=== PATIENT | female | born 1970 | race Caucasian/White ===

== ENCOUNTER → 2017-01-28 | Outpatient (CLI) | payer OTHER ==
--- NOTE | 2017-01-31 09:53 | MM ---
Reason for exam: screening (asymptomatic). History: Patient had first child at age 41. Physical Findings: A clinical breast exam by your physician is recommended on an annual basis and results should be correlated with mammographic findings. MG 3D Screening Mammo W/Cad Bilateral CC and MLO view(s) were taken. The breast tissue is heterogeneously dense. This may lower the sensitivity of mammography. No significant changes when compared with prior studies. ASSESSMENT: Benign, BI-RAD 2 RECOMMENDATION: Routine screening mammogram of both breasts in 1 year.
== END | disposition home or self-care (01) ==
LOC: RADMAMWWP 10:07
PROVIDERS: ATTEND Obstetrics & Gynecology
DX: Z12.31 Encounter for screening mammogram for malignant neoplasm of breast (principal)
CPT/HCPCS: 77063; G0202

== ENCOUNTER → 2019-11-21 | Outpatient (CLI) | payer BC ==
[2019-11-22 02:06] LABS: ALT 13 U/L (8-44); AST 21 U/L (13-35); Albumin/Globulin Ratio 1.55 (1.60-3.17); Alkaline Phosphatase 63 U/L (41-126); Bilirubin, Conjugated <0.20 mg/dL (0.20-0.40); Chol/HDL Ratio 3.44; Cholesterol 248 mg/dL (0-200); Globulin 2.9 g/dL (1.6-3.3); LDL Cholesterol,Calculated 157.8 mg/dL (0.0-131.0); Total Bilirubin 0.4 mg/dL (0.3-1.2); Total Protein 7.4 g/dL (6.2-8.2)
== END | disposition home or self-care (01) ==
LOC: LABWHC1 16:14
PROVIDERS: ATTEND Internal Medicine
DX: E78.5 Hyperlipidemia, unspecified (principal)
CPT/HCPCS: 36415; 80061; 80076

== ENCOUNTER → 2020-10-16 | Outpatient (CLI) | payer BC ==
--- NOTE | 2020-10-17 13:39 | MM ---
Reason for exam: screening (asymptomatic). Last mammogram was performed 3 years and 9 months ago. History: Patient had first child at age 41. Physical Findings: A clinical breast exam by your physician is recommended on an annual basis and results should be correlated with mammographic findings. MG 3D Screening Mammo W/Cad Bilateral CC and MLO view(s) were taken. Prior study comparison: January 28, 2017, bilateral MG 3d screening mammo w/cad. October 14, 2015, mammogram. October 07, 2014, mammogram. The breast tissue is heterogeneously dense. This may lower the sensitivity of mammography. There are benign appearing round, vascular calcifications. There is no discrete abnormality. ASSESSMENT: Benign, BI-RAD 2 RECOMMENDATION: Routine screening mammogram of both breasts in 1 year.
== END | disposition home or self-care (01) ==
LOC: RADMAMWWP 12:01
PROVIDERS: ATTEND Obstetrics & Gynecology
DX: Z12.31 Encounter for screening mammogram for malignant neoplasm of breast (principal); Z80.3 Family history of malignant neoplasm of breast
CPT/HCPCS: 77063; 77067

== ENCOUNTER → 2021-05-06 | Outpatient (CLI) | payer BC ==
--- NOTE | 2021-05-06 10:12 | XR ---
Right RIBS HISTORY: Trauma and pain 3 views of the right ribs, no comparisons There is no evident displaced rib fracture. No pneumothorax or pleural effusion. Bone mineralization is maintained. IMPRESSION: No acute abnormalities evident, no displaced fracture. Bone scan may be of benefit to ass ess for occult fracture as indicated.
[2021-05-06 18:26] LABS: ALT 15 U/L (8-44); AST 20 U/L (13-35); Albumin/Globulin Ratio 1.48 (1.60-3.17); Alkaline Phosphatase 58 U/L (41-126); Bilirubin, Conjugated <0.20 mg/dL (0.20-0.40); Chol/HDL Ratio 3.67; Cholesterol 209 mg/dL (0-200); Globulin 2.9 g/dL (1.6-3.3); LDL Cholesterol,Calculated 126.6 mg/dL (0.0-131.0); Total Bilirubin 0.4 mg/dL (0.2-1.2); Total Protein 7.2 g/dL (6.2-8.2)
== END | disposition home or self-care (01) ==
LOC: LABWHC1 09:31
PROVIDERS: ATTEND Internal Medicine
DX: E78.5 Hyperlipidemia, unspecified (principal); R07.81 Pleurodynia
CPT/HCPCS: 36415; 80061; 80076

== ENCOUNTER 2021-12-06 17:45 | Emergency (ER) | payer BC ==
[2021-12-06 18:08] VITALS: RESP 18; TEMP 98.3
[2021-12-06 19:30] VITALS: PULSE 74
[2021-12-06 19:47] VITALS: BP 155/90
--- NOTE | 2021-12-06 20:35 | CT ---
EXAMINATION TYPE: CT brain wo con DATE OF EXAM: 12/06/2021 COMPARISON: 08/23/2017 HISTORY: facial numbness, migraine CT DLP: 1091.4 mGycm Automated exposure control for dose reduction was used. Ventricles have normal size. There is no mass effect or midline shift. There is no sign of intracrani al hemorrhage. Calvarium is intact. Skull base is intact. There is mucous retention cyst in the left maxillary sinus. IMPRESSION: Negative CT scan of the brain. No change. There are mucus retention cysts left maxillary sinus noted.
[2021-12-06 20:58] LABS: Basophils # (A) 0.1 k/uL (0-0.2); Basophils % (A) 1 %; Eosinophils # (A) 0.1 k/uL (0-0.7); Eosinophils % (A) 1 %; HCT 45.3 % (34.0-46.0); HGB 15.1 gm/dL (11.4-16.0); Lymphocytes # (A) 1.7 k/uL (1.0-4.8); Lymphocytes % (A) 18 %; MCH 29.7 pg (25.0-35.0); MCHC 33.4 g/dL (31.0-37.0); MCV 88.9 fL (80.0-100.0); Mean Platelet Volume 9.3; Monocytes # (A) 0.6 k/uL (0-1.0); Monocytes % (A) 6 %; Neutrophils % (A) 73 %; Platelet Count 325 k/uL (150-450); RDW 14.1 % (11.5-15.5); WBC 9.6 k/uL (3.8-10.6)
--- NOTE | 2021-12-06 20:58 | ED ---
General Adult HPI - General Chief complaint: Allergic Reaction Stated complaint: Allergic Reaction, Facial Numbness Time Seen by Provider: 12/06/21 19:06 Source: patient Mode of arrival: ambulatory Limitations: no limitations - History of Present Illness Initial comments: Patient is a 51-year-old female presenting with chief complaint face and hand numbness. Pt states that her R hand and R side of her mouth and tongue began to go numb at 17:30. This was also accompanied by Hives on the neck. Pt then took a benadryl and an aspirin and symptoms began to improve. At presentation, pt states that symptoms have improved but not fully resolved. Pt denies any new foods, medications, or products. Pt denies chest pain, shortness of breath, abdominal pain, nausea, vomiting, vision or hearing changes, difficulty speaking, headache, fever, chills, diarrhea, constipation, hemoptysis, cough, hematuria, hematochezia, hematemesis. - Related Data Home Medications Medication Instructions Recorded Confirmed Aspirin 325 mg PO HS 12/06/21 12/06/21 Cetirizine HCl 10 mg PO HS 12/06/21 12/06/21 Ezetimibe [Zetia] 10 mg PO HS 12/06/21 12/06/21 Multivit-Min/Iron/Folic/Lutein 1 tab PO HS 12/06/21 12/06/21 [Centrum Silver Women Tablet] Allergies Allergy/AdvReac Type Severity Reaction Status Date / Time Penicillins Allergy Throat Verified 12/06/21 22:07 Swelling Cdhcvbi-VTC-PzN Reductase Allergy Unknown Verified 12/06/21 22:07 Inhibitor antibiotics Allergy Unknown Uncoded 12/06/21 22:07 steroids Allergy Unknown Uncoded 12/06/21 22:07 Review of Systems ROS Statement: Those systems with pertinent positive or pertinent negative responses have been documented in the HPI. ROS Other: All systems not noted in ROS Statement are negative. Past Medical History Past Medical History: Hyperlipidemia History of Any Multi-Drug Resistant Organisms: None Reported Past Surgical History: No Surgical Hx Reported Past Psychological History: No Psychological Hx Reported Smoking Status: Never smoker Past Alcohol Use History: None Reported Past Drug Use History: None Reported General Exam Limitations: no limitations General appearance: alert, in no apparent distress Head exam: Present: atraumatic, normocephalic, normal inspection Eye exam: Present: normal appearance, PERRL, EOMI. Absent: scleral icterus, conjunctival injection, periorbital swelling ENT exam: Present: normal exam, mucous membranes moist Neck exam: Present: normal inspection Respiratory exam: Present: normal lung sounds bilaterally. Absent: respiratory distress, wheezes, rales, rhonchi, stridor Cardiovascular Exam: Present: regular rate, normal rhythm, normal heart sounds. Absent: systolic murmur, diastolic murmur, rubs, gallop, clicks Neurological exam: Present: alert, oriented X3, CN II-XII intact Expanded Patient oriented to: Present: person, place, time Speech: Present: fluid speech Cranial nerves: Tongue Deviation: Normal, Facial Palsy with Forehead Movement: Normal (Patient is able to fully raise eyebrows, smile, frown. No abnormality) Motor strength exam: RUE: 5, LUE: 5 Eye Response: (4) open spontaneously Motor Response: (6) obeys commands Verbal Response: (5) oriented Osiel Total: 15 Psychiatric exam: Present: normal affect, normal mood Skin exam: Present: warm, dry, intact, normal color. Absent: rash Course Vital Signs 12/06/21 12/06/21 12/06/21 18:05 19:28 19:47 Temperature 98.3 F Pulse Rate 89 74 Respiratory 18 18 Rate Blood Pressure 167/100 174/101 155/90 O2 Sat by Pulse 100 100 Oximetry EKG Findings - EKG Comments: EKG Findings:: Sinus rhythm. Normal axis, normal rate of 60, W[place] interval is 136, no ST changes. EKG was shown to and also interpreted by my attending Dr. Turner - EKG Results: EKG: interpreted by VALERI HARLEY, sinus rhythm, normal axis, normal QRS, normal ST/T Medical Decision Making - Medical Decision Making Patient is 51-year-old female presenting with chief complaint of right hand and face numbness. Symptoms began at 1730. They were accompanied by red hives along the neck. Hives resolved with Benadryl. Patient also took an aspirin. At presentation numbness is beginning to dissipate but has not fully resolved. On exam there are no focal neurological deficits. CBC and CMP are unremarkable. Troponin is not elevated. EKG is WNL. Computed tomography scan of the brain is negative. At reevaluation patient states that symptoms are continuing to improve. Patient appears stable for discharge at this time. Follow-up with PCP in one to 2 days. I advised the patient on return parameters and answered all questions. Patient conveyed verbal understanding and agreed to the plan. I discussed this case with my attending Dr. Turner - Lab Data Result diagrams: 12/06/21 20:04 12/06/21 21:20 Lab Results 12/06/21 12/06/21 12/06/21 Range/Units 20:04 21:20 21:20 WBC 9.6 (3.8-10.6) k/uL RBC 5.10 (3.80-5.40) m/uL Hgb 15.1 (11.4-16.0) gm/dL Hct 45.3 (34.0-46.0) % MCV 88.9 (80.0-100.0) fL MCH 29.7 (25.0-35.0) pg MCHC 33.4 (31.0-37.0) g/dL RDW 14.1 (11.5-15.5) % Plt Count 325 (150-450) k/uL MPV 9.3 Neutrophils % 73 % Lymphocytes % 18 % Monocytes % 6 % Eosinophils % 1 % Basophils % 1 % Neutrophils # 7.0 (1.3-7.7) k/uL Lymphocytes # 1.7 (1.0-4.8) k/uL Monocytes # 0.6 (0-1.0) k/uL Eosinophils # 0.1 (0-0.7) k/uL Basophils # 0.1 (0-0.2) k/uL Sodium 140 (137-145) mmol/L Potassium 4.5 (3.5-5.1) mmol/L Chloride 107 (98-107) mmol/L Carbon Dioxide 22 (22-30) mmol/L Anion Gap 11 mmol/L BUN 11 (7-17) mg/dL Creatinine 0.76 (0.52-1.04) mg/dL Est GFR (CKD-EPI)AfAm >90 (>60 ml/min/1.73 sqM) Est GFR (CKD-EPI)NonAf >90 (>60 ml/min/1.73 sqM) Glucose 95 (74-99) mg/dL Calcium 9.5 (8.4-10.2) mg/dL Total Bilirubin 0.4 (0.2-1.3) mg/dL AST 26 (14-36) U/L ALT 13 (4-34) U/L Alkaline Phosphatase 64 (38-126) U/L Troponin I <0.012 (0.000-0.034) ng/mL Total Protein 8.3 H (6.3-8.2) g/dL Albumin 4.5 (3.5-5.0) g/dL - Radiology Data Radiology results: report reviewed Brain CT without contrast: Negative computed tomography scan of the brain. Disposition Clinical Impression: Allergic reaction Disposition: HOME SELF-CARE Condition: Good Instructions (If sedation given, give patient instructions): Anaphylaxis (ED), General Allergic Reaction (ED) Additional Instructions: Follow-up with PCP in one to 2 days. Report back to ER with any worsening symptoms or new onset alarm symptoms, including but not limited to weakness or numbness one side of the body, difficulty speaking, chest pain, shortness of breath, Is patient prescribed a controlled substance at d/c from ED?: No Referrals: Sandy Short MD [Primary Care Provider] - 1-2 days Time of Disposition: 21:58
[2021-12-06 21:43] LABS: ALT 13 U/L (4-34); AST 26 U/L (14-36); African American GFR (CKD) >90 (>60 ml/min/1.73 sqM); Albumin 4.5 g/dL (3.5-5.0); Alkaline Phosphatase 64 U/L (38-126); Anion Gap 11 mmol/L; Blood Urea Nitrogen 11 mg/dL (7-17); Calcium 9.5 mg/dL (8.4-10.2); Carbon Dioxide 22 mmol/L (22-30); Chloride 107 mmol/L (98-107); Glucose 95 mg/dL (74-99); Non-African American GFR(CKD) >90 (>60 ml/min/1.73 sqM); Potassium 4.5 mmol/L (3.5-5.1); Sodium 140 mmol/L (137-145); Total Bilirubin 0.4 mg/dL (0.2-1.3); Total Protein 8.3 g/dL (6.3-8.2)
== END 2021-12-06 22:14 | disposition home or self-care (01) ==
LOC: EC 17:45
DX: T78.40XA Allergy, unspecified, initial encounter (principal); Z88.0 Allergy status to penicillin; Z88.8 Allergy status to other drugs, medicaments and biological substances; Z88.1 Allergy status to other antibiotic agents
CPT/HCPCS: 36415; 70450; 80053; 84484; 85025; 93005; 99284

== ENCOUNTER → 2021-12-18 | Outpatient (CLI) | payer BC ==
--- NOTE | 2021-12-21 11:54 | MM ---
Reason for exam: screening (asymptomatic). Last mammogram was performed 1 year and 2 months ago. History: Patient had first child at age 41. Family history of breast cancer in mother at age 78. Physical Findings: A clinical breast exam by your physician is recommended on an annual basis and results should be correlated with mammographic findings. MG 3D Screening Mammo W/Cad Bilateral CC and MLO view(s) were taken. Prior study comparison: October 16, 2020, bilateral MG 3d screening mammo w/cad. January 28, 2017, bilateral MG 3d screening mammo w/cad. The breast tissue is heterogeneously dense. This may lower the sensitivity of mammography. Finding: There are new indeterminate calcifications in the upper outer quadrant of the right breast zone B/C. ASSESSMENT: Incomplete: need additional imaging evaluation, BI-RAD 0 RECOMMENDATION: Special view mammogram of the right breast. [facility] will attempt to contact patient to return for supplemental views.
== END | disposition home or self-care (01) ==
LOC: RADMAMWWP 16:48
PROVIDERS: ATTEND Obstetrics & Gynecology
DX: Z12.31 Encounter for screening mammogram for malignant neoplasm of breast (principal)
CPT/HCPCS: 77063; 77067

== ENCOUNTER → 2021-12-22 | Outpatient (CLI) | payer BC ==
--- NOTE | 2021-12-23 09:50 | MM ---
Reason for exam: additional evaluation requested from abnormal screening. Last mammogram was performed less than 1 month ago. History: Patient had first child at age 41. Family history of breast cancer in mother at age 78. Physical Findings: A clinical breast exam by your physician is recommended on an annual basis and results should be correlated with mammographic findings. MG 3D Work Up W/Cad RT CC with magnification, ML with magnification, and ML view(s) were taken of the right breast. Prior study comparison: December 18, 2021, bilateral MG 3d screening mammo w/cad. October 16, 2020, bilateral MG 3d screening mammo w/cad. The breast tissue is heterogeneously dense. This may lower the sensitivity of mammography. 1 o'clock posterior right breast grouped calcifications appear smudgy on magnification CC. At least two layer on magnification ML. Partially layer on magnification LM. Possible milk of calcium. 6 month follow up. Results were given to the patient verbally at the time of the exam. ASSESSMENT: Probably benign, BI-RAD 3 RECOMMENDATION: Follow-up diagnostic mammogram of the right breast in 6 months.
== END | disposition home or self-care (01) ==
LOC: RADMAMWWP 14:28
PROVIDERS: ATTEND Obstetrics & Gynecology
DX: R92.8 Other abnormal and inconclusive findings on diagnostic imaging of breast (principal)
CPT/HCPCS: 77061; 77065

== ENCOUNTER → 2021-12-29 | Outpatient (CLI) | payer BC ==
--- NOTE | 2021-12-30 08:09 | US ---
EXAMINATION TYPE: US kidneys/renal and bladder DATE OF EXAM: 12/29/2021 COMPARISON: NONE CLINICAL HISTORY: R31.9 HEMATURIA, UNSPECIFIED. Hematuria EXAM MEASUREMENTS: Right Kidney: 9.0 x 3.4 x 3.0 cm Left Kidney: 9.1 x 5.2 x 3.9 cm Right Kidney: No hydronephrosis or masses seen Left Kidney: No hydronephrosis or masses seen Bladder: wnl Bilateral Jets seen: Yes There is no evidence for hydronephrosis at this point in time. No nephrolithiasis is seen. No becky s are identified. The urinary bladder is anechoic. Bilateral ureteral jets are seen. IMPRESSION: No discrete abnormality appreciated.
== END | disposition home or self-care (01) ==
LOC: RADUSWWP 16:17
PROVIDERS: ATTEND Internal Medicine
DX: R31.9 Hematuria, unspecified (principal)
CPT/HCPCS: 76770

== ENCOUNTER → 2022-07-12 | Outpatient (CLI) | payer BC ==
--- NOTE | 2022-07-12 15:08 | MM ---
Reason for Exam: Follow-up at short interval from prior study. Last screening mammogram was performed 6 month(s) ago. Patient History: Menarche at age 13. First Full-Term at age 41. Late child-bearing (after 30). Mother had breast cancer, age 78. Last menstrual period: 06/13/2022 Risk Values: Lacey 5 year model risk: 2.0%. NCI Lifetime model risk: 17.0%. Prior Study Comparison: 10/07/2014 Screening Mammogram, Unknown. 10/14/2015 Screening Mammogram, Unknown. 01/28/2017 Bilateral Screening Mammogram, [facility]. 10/16/2020 Bilateral Screening Mammogram, [facility]. 12/18/2021 Bilateral Screening Mammogram, [facility]. 12/22/2021 Right Diagnostic Mammogram, [facility]. Tissue Density: Right: The breast tissue is heterogeneously dense. This may lower the sensitivity of mammography. Findings: Analyzed By CAD. Redemonstrated microcalcifications posterior right breast 12 to 1:00 position. Again, these appear smudgy on the CC view and at least two layer on the lateral view. Ongoing short interval follow-up for suspected benign milk of calcium. Otherwise, no significant change. Overall Assessment: Probably benign, BI-RAD 3 Management: Diagnostic Mammogram of both breasts in 6 months. Total one-year follow-up right breast calcifications. Annual exam of the left breast. Patient should continue monthly self breast exams. These results should not preclude additional follow-up of suspicious palpable abnormalities. Results were given to the patient verbally at the time of exam. Electronically signed and approved by: Jimmie Vegas M.D. Radiologist
== END | disposition home or self-care (01) ==
LOC: RADMAMWWP 14:26
PROVIDERS: ATTEND Internal Medicine
DX: R92.8 Other abnormal and inconclusive findings on diagnostic imaging of breast (principal); Z80.3 Family history of malignant neoplasm of breast
CPT/HCPCS: 77061; 77065

== ENCOUNTER → 2023-01-19 | Outpatient (CLI) | payer BC ==
--- NOTE | 2023-01-19 15:08 | MM ---
Reason for Exam: Follow-up at short interval from prior study. Last mammogram was performed 1 year(s) and 1 month(s) ago. Patient History: Menarche at age 13. First Full-Term at age 41. Late child-bearing (after 30). Mother had breast cancer, age 78. Last menstrual period: 01/16/2023 Risk Values: Lacey 5 year model risk: 2.0%. NCI Lifetime model risk: 17.0%. Prior Study Comparison: 10/14/2015 Screening Mammogram, Unknown. 01/28/2017 Bilateral Screening Mammogram, [facility]. 10/16/2020 Bilateral Screening Mammogram, [facility]. 12/18/2021 Bilateral Screening Mammogram, [facility]. 12/22/2021 Right Diagnostic Mammogram, [facility]. 07/12/2022 Right MG 3D diag mammo w/cad RT, [facility]. Tissue Density: The breast tissue is heterogeneously dense. This may lower the sensitivity of mammography. Findings: Analyzed By CAD. No suspicious mass within either breast. No new suspicious group of macrocalcifications within either breast. No architectural distortion. Benign-appearing calcifications within both breasts. Previously seen grouped calcifications within the posterior right breast at 12 to 1:00 position demonstrate smudgy appearance with layering on the lateral view again consistent with benign milk of calcium. Overall Assessment: Benign, BI-RAD 2 Management: Screening Mammogram of both breasts in 1 year. A clinical breast exam by your physician is recommended on an annual basis and results should be correlated with mammographic findings. This exam should not preclude additional follow-up of suspicious palpable abnormalities. Results were given to the patient verbally at the time of exam. Electronically signed and approved by: Perfecto Starkey D.O.
== END | disposition home or self-care (01) ==
LOC: RADMAMWWP 14:28
PROVIDERS: ATTEND Obstetrics & Gynecology
DX: R92.8 Other abnormal and inconclusive findings on diagnostic imaging of breast (principal); Z80.3 Family history of malignant neoplasm of breast
CPT/HCPCS: 77062; 77066

== ENCOUNTER → 2023-02-22 | Outpatient (CLI) | payer BC ==
[2023-02-22 15:57] LABS: Chol/HDL Ratio 3.79 Ratio; LDL Cholesterol,Calculated 147.4 mg/dL (0.0-131.0)
[2023-02-22 15:58] LABS: ALT 12 U/L (8-44); AST 16 U/L (13-35); Albumin 4.4 d/dL (3.8-4.9); Albumin/Globulin Ratio 1.42 Ratio (1.60-3.17); Alkaline Phosphatase 68 U/L (41-126); Bilirubin, Conjugated <0.20 mg/dL (0.20-0.40); Bilirubin,Unconjugated >0.10 mg/dL (0.20-1.00); Globulin 3.1 d/dL (1.6-3.3); Total Bilirubin 0.3 mg/dL (0.3-1.2); Total Protein 7.5 d/dL (6.2-8.2)
== END | disposition home or self-care (01) ==
LOC: LABWHC1 11:01
PROVIDERS: ATTEND Internal Medicine
DX: E78.5 Hyperlipidemia, unspecified (principal)
CPT/HCPCS: 36415; 80061; 80076

== ENCOUNTER → 2023-05-30 | Outpatient (CLI) | payer BC, OTHER ==
--- NOTE | 2023-05-31 17:02 | US ---
EXAMINATION TYPE: US thyroid st tissue head/neck DATE OF EXAM: 05/30/2023 COMPARISON: NONE CLINICAL INDICATION: Female, 52 years old with history of R22.0 LOCALIZED SWELLING, MASS AND LUMP, HE AD; Patient states she has a hard time swallowing- something feels stuck GLAND SIZE: Right Lobe: 4.9 x 1.2 x 1.3 cm Overall Parenchyma: homogenous Left Lobe: 4.4 x 1.6 x 1.3 cm Overall Parenchyma: homogeneous Isthmus Thickness: 0.2 cm NODULES RIGHT: # of nodules measured on right: 1 1. 0.3 X 0.3 x 0.2 cm colloid cyst, upper mid, cystic or almost completely cystic, anechoic nodule, which is wider than tall, with smooth margins, without echogenic foci. Prior size: No prior LEFT: # of nodules measured on left: 0 ISTHMUS: # of nodules measured in the isthmus: 0 Bilateral neck scanned, no evidence of lymphadenopathy. IMPRESSION: 1. Subcentimeter nodule right lobe thyroid.
== END | disposition home or self-care (01) ==
LOC: RADUSWWP 16:58
PROVIDERS: ATTEND Internal Medicine
DX: E04.1 Nontoxic single thyroid nodule (principal)
CPT/HCPCS: 76536

== ENCOUNTER → 2024-06-14 | Outpatient (CLI) | payer BC ==
--- NOTE | 2024-06-15 14:00 | MM ---
Reason for Exam: Screening (asymptomatic). Last mammogram was performed 1 year(s) and 5 month(s) ago. Patient History: Menarche at age 13. First Full-Term at age 41. Late child-bearing (after 30). Mother had breast cancer, age 78. Risk Values: Lacey 5 year model risk: 2.1%. NCI Lifetime model risk: 16.7%. Prior Study Comparison: 12/22/2021 Right Diagnostic Mammogram, [facility]. 07/12/2022 Right MG 3D diag mammo w/cad RT, [facility]. 01/19/2023 Bilateral MG 3D diag mammo w/cad VERONICA, [facility]. Tissue Density: The breasts are heterogeneously dense, which may obscure small masses. Findings: Analyzed By CAD. Elongated nodular density at the approximate 12:00 position right breast 6.6 cm from the nipple measuring 1 cm. Additional views are recommended. No evidence for left-sided breast nodule. Benign calcifications seen bilaterally. Overall Assessment: Incomplete: need additional imaging evaluation, BI-RAD 0 Management: Diagnostic Mammogram of the right breast. . Patient should continue monthly self-breast exams. A clinical breast exam by your physician is recommended on an annual basis. This exam should not preclude additional follow-up of suspicious palpable abnormalities. Note on Lacey scores and lifetime risk: 1. A Lacey score greater than 3% is considered moderate risk. If this is the case, consider specialist referral to assess eligibility for a risk reducing agent. 2. If overall lifetime risk for the development of breast cancer is 20% or higher, the patient may qualify for future screening with alternating mammogram and breast MRI. [facility], , 06/15/2024 1:57 PM. Electronically signed and approved by: Cooper Whitehead M.D. Radiologis
== END | disposition home or self-care (01) ==
LOC: RADMAMWWP 14:05
PROVIDERS: ATTEND Family Medicine
DX: Z12.39 Encounter for other screening for malignant neoplasm of breast
CPT/HCPCS: 77063; 77067

== ENCOUNTER → 2024-06-26 | Outpatient (CLI) | payer BC ==
--- NOTE | 2024-06-26 11:36 | MM ---
Reason for Exam: Additional evaluation requested from prior study. Last screening mammogram was performed less than 1 month ago. Patient History: Menarche at age 13. First Full-Term at age 41. Late child-bearing (after 30). Perimenopausal. Mother had breast cancer, age 78. Risk Values: Lacey 5 year model risk: 2.2%. NCI Lifetime model risk: 16.5%. Tissue Density: Right: There are scattered areas of fibroglandular density. Findings: Analyzed By CAD. Asymmetry right breast 5.2 cm from the nipple measuring 5 mm seen on sCC view only. The other area/asymmetry resolves on spot compression. Overall Assessment: Incomplete: need additional imaging evaluation, BI-RAD 0 Management: Diagnostic Breast Ultrasound of the right breast. Results were given to the patient verbally at the time of exam. Patient should continue monthly self-breast exams. A clinical breast exam by your physician is recommended on an annual basis. This exam should not preclude additional follow-up of suspicious palpable abnormalities. Note on Lacey scores and lifetime risk: 1. A Lacey score greater than 3% is considered moderate risk. If this is the case, consider specialist referral to assess eligibility for a risk reducing agent. 2. If overall lifetime risk for the development of breast cancer is 20% or higher, the patient may qualify for future screening with alternating mammogram and breast MRI. [facility], , 06/26/2024 10:45 AM. Electronically signed and approved by: Avtar Chavarria DO
--- NOTE | 2024-06-26 11:36 | USB ---
Reason for Exam: Additional evaluation requested from abnormal screening. Patient History: Menarche at age 13. First Full-Term at age 41. Late child-bearing (after 30). Perimenopausal. Mother had breast cancer, age 78. Risk Values: Lacey 5 year model risk: 2.2%. NCI Lifetime model risk: 16.5%. Technique: Method: Targeted. Prior Study Comparison: 07/12/2022 Right MG 3D diag mammo w/cad RT, [facility]. 01/19/2023 Bilateral MG 3D diag mammo w/cad VERONICA, [facility]. 06/14/2024 Bilateral MG 3D screening mammo w/cad, [facility]. Findings: The lateral section of the breast of the right breast, the axilla of the right breast and the retroareolar of the right breast were scanned. Technique utilized:US breast workup limited RT Image; Ultrasound imaging of: Area of concern, retroareolar region and axilla. Minimally complex cyst at 10:00 5 cm nipple measuring 7 x 4 x 5 mm correlating with finding on same day mammography. Additional 4 mm cyst at 7:00 5 cm from the nipple. No evidence for organizing fluid collection or suspicious mass. Overall Assessment: Benign, BI-RAD 2 Management: Screening Mammogram of both breasts in 1 year. A clinical breast exam by your physician is recommended on an annual basis and results should be correlated with mammographic findings. This exam should not preclude additional follow-up of suspicious palpable abnormalities. Results were given to the patient verbally at the time of exam. [facility], , 06/26/2024 11:30 AM. Electronically signed and approved by: Avtar Chavarria DO
== END ==
LOC: RADMAMWWP 10:10
PROVIDERS: ATTEND Family Medicine
CPT/HCPCS: 77061; 77065